=== PATIENT | male | born 1970 | race Caucasian/White ===

== ENCOUNTER 2023-03-02 05:13 | Emergency (ER) | payer BC ==
[2023-03-02 05:27] VITALS: RESP 18; TEMP 97.8
[2023-03-02] MEDS ORDERED: HYDROmorphone 1 MG/ML 1 ML SYRINGE IM STA (05:39)
[2023-03-02] MEDS ORDERED: diazePAM 5 MG TAB PO STA (05:39)
--- NOTE | 2023-03-02 05:40 | ED ---
Back Pain HPI - General Source: family, RN notes reviewed, old records reviewed Limitations: no limitations - History of Present Illness MD Complaint: back pain -: hour(s) Similar Symptoms Previously: Yes Place: home Radiation: none Severity: mild Severity scale (1-10): 3 Quality: sharp Consistency: constant Improves With: none Worsens With: none Context: while lifting Associated Symptoms: denies other symptoms <Kalin Carlson - Last Filed: 03/02/23 06:49> <Kalin Lopez - Last Filed: 03/02/23 08:24> - General Chief Complaint: Back Pain/Injury Stated Complaint: back pain Time Seen by Provider: 03/02/23 05:30 - History of Present Illness Initial Comments: This is a 52-year-old male to the emergency room for evaluation. Patient presents today for evaluation of back pain severe onset of back pain started last night with inability to stand up family history his back inability to move or walk. Patient can gingerly leaned forward and walk. (Kalin Carlson) - Related Data Previous Rx's Medication Instructions Recorded Cyclobenzaprine [Flexeril] 10 mg PO TID #20 tab 03/02/23 Ketorolac [Toradol] 10 mg PO Q6HR #15 tab 03/02/23 Allergies Allergy/AdvReac Type Severity Reaction Status Date / Time No Known Allergies Allergy Verified 03/02/23 05:20 Review of Systems ROS Other: All systems not noted in ROS Statement are negative. <Kalin Carlson - Last Filed: 03/02/23 06:49> ROS Other: All systems not noted in ROS Statement are negative. <Kalin Lopez - Last Filed: 03/02/23 08:24> ROS Statement: Those systems with pertinent positive or pertinent negative responses have been documented in the HPI. Past Medical History Past Medical History: No Reported History History of Any Multi-Drug Resistant Organisms: None Reported Past Surgical History: No Surgical Hx Reported Past Psychological History: No Psychological Hx Reported Smoking Status: Never smoker Past Alcohol Use History: Rare Past Drug Use History: None Reported <Kalin Carlson - Last Filed: 03/02/23 06:49> General Exam Limitations: no limitations General appearance: alert, in no apparent distress Head exam: Present: atraumatic, normocephalic, normal inspection Eye exam: Present: normal appearance, PERRL, EOMI. Absent: scleral icterus, conjunctival injection, periorbital swelling ENT exam: Present: normal exam, mucous membranes moist Neck exam: Present: normal inspection. Absent: tenderness, meningismus, lymphadenopathy Respiratory exam: Present: normal lung sounds bilaterally. Absent: respiratory distress, wheezes, rales, rhonchi, stridor Cardiovascular Exam: Present: regular rate, normal rhythm, normal heart sounds. Absent: systolic murmur, diastolic murmur, rubs, gallop, clicks GI/Abdominal exam: Present: soft, normal bowel sounds. Absent: distended, tenderness, guarding, rebound, rigid Extremities exam: Present: normal inspection, full ROM, normal capillary refill. Absent: tenderness, pedal edema, joint swelling, calf tenderness Back exam: Present: normal inspection Neurological exam: Present: alert, oriented X3, CN II-XII intact Psychiatric exam: Present: normal affect, normal mood Skin exam: Present: warm, dry, intact, normal color. Absent: rash <Kalin Carlson - Last Filed: 03/02/23 06:49> Course <Kalin Carlson - Last Filed: 03/02/23 06:49> Vital Signs 03/02/23 03/02/23 05:18 07:51 Temperature 97.8 F Pulse Rate 76 60 Respiratory 18 18 Rate Blood Pressure 123/79 116/86 O2 Sat by Pulse 97 96 Oximetry - Reevaluation(s) Reevaluation #1: 03/02/23 06:53 Medical record is reviewed (Kalin Carlson) Reevaluation #4: 03/02/23 06:53 Was pt. sent in by a medical professional or institution (, PA, PERSONAL FITNESS MANAGER, urgent care, hospital, or [facility]...) When possible be specific @ -no Did you speak to anyone other than the patient for history (EMS, parent, family, police, friend...)? What history was obtained from this source @ -no Did you review nursing and triage notes (agree or disagree)? Why? @ -agree Are old charts reviewed (outside hosp., previous admission, EMS record, old EKG, old radiological studies, urgent care reports/EKG's, [facility] records)? Report findings @ -yes Differential Diagnosis (chest pain, altered mental status, abdominal pain women, abdominal pain men, vaginal bleeding, weakness, fever, dyspnea, syncope, headache, dizziness, GI bleed, back pain, seizure, CVA, palpatations, mental health, musculoskeletal)? @ -prior EKG interpreted by me (3pts min.). @ -yes X-rays interpreted by me (1pt min.). @ -yes CT interpreted by me (1pt min.). @ -no U/S interpreted by me (1pt. min.). @ -no What testing was considered but not performed or refused? (CT, X-rays, U/S, labs)? Why? @ -none What meds were considered but not given or refused? Why? @ -none Did you discuss the management of the patient with other professionals (professionals i.e. , PA, PERSONAL FITNESS MANAGER, lab, RT, psych nurse, social media project manager, escrow clerk, teacher, planned giving officer, shelter case manager)? Give summary @ -no Was smoking cessation discussed for >3mins.? @ -no Was critical care preformed (if so, how long)? @ -no Were there social determinants of health that impacted care today? How? (Homelessness, low income, unemployed, alcoholism, drug addiction, transportation, low edu. Level, literacy, decrease access to med. care, fpc, rehab)? @ -none Was there de-escalation of care discussed even if they declined (Discuss DNR or withdrawal of care, Hospice)? DNR status @ -no What co-morbidities impacted this encounter? (DM, HTN, Smoking, COPD, CAD, Cancer, CVA, ARF, Chemo, Hep., AIDS, mental health diagnosis, sleep apnea, morbid obesity)? @ -none Was patient admitted / discharged? Hospital course, mention meds given and route, prescriptions, significant lab abnormalities, going to OR and other pertinent info. @ - Undiagnosed new problem with uncertain prognosis? @ -no Drug Therapy requiring intensive monitoring for toxicity (Heparin, Nitro, Insulin, Cardizem)? @ -no Were any procedures done? @ -no Diagnosis/symptom? @ - Acute, or Chronic, or Acute on Chronic? @ -Acute Uncomplicated (without systemic symptoms) or Complicated (systemic symptoms)? @ -Complicated Side effects of treatment? @ -no Exacerbation, Progression, or Severe Exacerbation? @ -exacerbation Poses a threat to life or bodily function? How? (Chest pain, [place], [place], pneumonia, PE, COPD, DKA, ARF, appy, cholecystitis, CVA, Diverticulitis, Homicidal, Suicidal, threat to staff... and all critical care pts) @ -yes (Kalin Carlson) Reevaluation #5: 03/02/23 06:53 Differential Back Pain: Strain, zoster, cauda equina syndrome, epidural abscess, vertebral osteomyelitis, discitis, fracture, subluxation, disc herniation, DJD, spinal stenosis, dissection, AAA, pancreatitis, peptic ulcer disease, pyelonephritis, kidney stone, this is not meant to be an all-inclusive list. (Kalin Carlson) Medical Decision Making - Lab Data Result diagrams: 03/02/23 06:27 <Kalin Carlson - Last Filed: 03/02/23 06:49> - Lab Data Result diagrams: 03/02/23 06:27 03/02/23 06:27 <Kalin Lopez - Last Filed: 03/02/23 08:24> - Medical Decision Making CT of the abdomen and pelvis was interpreted by myself shows no acute abnormality. CT lumbar spine showed bilateral foramen stenosis that was minimal and a little bit of spinal stenosis Was patient admitted / discharged? Hospital course, mention meds given and route, prescriptions, significant lab abnormalities, going to OR and other pertinent info. @ -Patient received Dilaudid morphine and Toradol and Valium in the emergency department he was feeling a little bit better Undiagnosed new problem with uncertain prognosis? @ -No Drug Therapy requiring intensive monitoring for toxicity (Heparin, Nitro, In sulin, Cardizem)? @ -No Were any procedures done? @ -No Diagnosis/symptom? @ -Back strain Acute, or Chronic, or Acute on Chronic? @ -Acute Uncomplicated (without systemic symptoms) or Complicated (systemic symptoms)? @ -Complicated Side effects of treatment? @ -No Exacerbation, Progression, or Severe Exacerbation? @ -No Poses a threat to life or bodily function? How? (Chest pain, [place], [place], pneumonia, PE, COPD, DKA, ARF, appy, cholecystitis, CVA, Diverticulitis, Homicidal, Suicidal, threat to staff... and all critical care pts) @ -No (Kalin Lopez) - Lab Data Lab Results 03/02/23 03/02/23 Range/Units 06:27 06:27 WBC 6.1 (3.8-10.6) k/uL RBC 4.73 (4.30-5.90) m/uL Hgb 14.1 (13.0-17.5) gm/dL Hct 41.7 (39.0-53.0) % MCV 88.2 (80.0-100.0) fL MCH 29.8 (25.0-35.0) pg MCHC 33.8 (31.0-37.0) g/dL RDW 12.6 (11.5-15.5) % Plt Count 192 (150-450) k/uL MPV 8.0 Neutrophils % 62 % Lymphocytes % 28 % Monocytes % 6 % Eosinophils % 2 % Basophils % 1 % Neutrophils # 3.8 (1.3-7.7) k/uL Lymphocytes # 1.7 (1.0-4.8) k/uL Monocytes # 0.4 (0-1.0) k/uL Eosinophils # 0.1 (0-0.7) k/uL Basophils # 0.0 (0-0.2) k/uL Sodium 137 (137-145) mmol/L Potassium 3.9 (3.5-5.1) mmol/L Chloride 105 (98-107) mmol/L Carbon Dioxide 22 (22-30) mmol/L Anion Gap 10 mmol/L BUN 24 H (9-20) mg/dL Creatinine 0.95 (0.66-1.25) mg/dL Est GFR (CKD-EPI)AfAm >90 (>60 ml/min/1.73 sqM) Est GFR (CKD-EPI)NonAf >90 (>60 ml/min/1.73 sqM) Glucose 107 H (74-99) mg/dL Calcium 9.3 (8.4-10.2) mg/dL Total Bilirubin 0.7 (0.2-1.3) mg/dL AST 34 (17-59) U/L ALT 33 (4-49) U/L Alkaline Phosphatase 59 (38-126) U/L C-Reactive Protein <0.5 (<1.0) mg/dL Total Protein 6.8 (6.3-8.2) g/dL Albumin 4.1 (3.5-5.0) g/dL Disposition <Kalin Carlson - Last Filed: 03/02/23 06:49> Is patient prescribed a controlled substance at d/c from ED?: No Time of Disposition: 08:22 <Kalin Lopez - Last Filed: 03/02/23 08:24> Clinical Impression: Strain of lumbar region Disposition: HOME SELF-CARE Instructions (If sedation given, give patient instructions): Low Back Strain (ED) Prescriptions: Cyclobenzaprine [Flexeril] 10 mg PO TID #20 tab Ketorolac [Toradol] 10 mg PO Q6HR #15 tab Referrals: Gustabo Gonzalez Jr, DO [Doctor of Osteopathic Medicine] - 1-2 days
[2023-03-02] MEDS ORDERED: MORPHINE SULFATE 4 MG/ML SYRINGE IVP STA (06:15)
[2023-03-02] MEDS ORDERED: KETOROLAC 15 MG/ML 1 ML VIAL IVP STA (06:15)
[2023-03-02] MEDS ORDERED: SODIUM CHLORIDE 0.9% 500 ML 500 ML IV ONE (06:15)
[2023-03-02 06:41] LABS: Basophils % (A) 1 %; Eosinophils # (A) 0.1 k/uL (0-0.7); Eosinophils % (A) 2 %; HCT 41.7 % (39.0-53.0); HGB 14.1 gm/dL (13.0-17.5); Lymphocytes # (A) 1.7 k/uL (1.0-4.8); Lymphocytes % (A) 28 %; MCH 29.8 pg (25.0-35.0); MCHC 33.8 g/dL (31.0-37.0); MCV 88.2 fL (80.0-100.0); Monocytes # (A) 0.4 k/uL (0-1.0); Monocytes % (A) 6 %; Neutrophils # (A) 3.8 k/uL (1.3-7.7); Neutrophils % (A) 62 %; Platelet Count 192 k/uL (150-450); RBC 4.73 m/uL (4.30-5.90); RDW 12.6 % (11.5-15.5); WBC 6.1 k/uL (3.8-10.6)
[2023-03-02 06:54] LABS: ALT 33 U/L (4-49); AST 34 U/L (17-59); African American GFR (CKD) >90 (>60 ml/min/1.73 sqM); Albumin 4.1 g/dL (3.5-5.0); Alkaline Phosphatase 59 U/L (38-126); Anion Gap 10 mmol/L; Blood Urea Nitrogen 24 mg/dL (9-20); C Reactive Protein <0.5 mg/dL (<1.0); Calcium 9.3 mg/dL (8.4-10.2); Carbon Dioxide 22 mmol/L (22-30); Chloride 105 mmol/L (98-107); Glucose 107 mg/dL (74-99); Non-African American GFR(CKD) >90 (>60 ml/min/1.73 sqM); Potassium 3.9 mmol/L (3.5-5.1); Sodium 137 mmol/L (137-145); Total Bilirubin 0.7 mg/dL (0.2-1.3); Total Protein 6.8 g/dL (6.3-8.2)
--- NOTE | 2023-03-02 07:46 | CT ---
EXAMINATION TYPE: CT abdomen pelvis wo con CT DLP: 377.7 mGycm, Automated exposure control for dose reduction was used. DATE OF EXAM: 03/02/2023 7:08 AM COMPARISON: None. CLINICAL INDICATION:Male, 52 years old with history of pain; right sided back pain TECHNIQUE: Axial CT of the abdomen and pelvis. Sagittal and coronal reformats were created on a [id number] workstation. Contrast used: mL of , (none if empty) Oral contrast used: without Oral Contrast (none if empty) FINDINGS: Exam is limited by lack of contrast. LOWER CHEST: Unremarkable ABDOMEN LIVER: Unremarkable GALLBLADDER AND BILE DUCTS: Unremarkable. PANCREAS: Unremarkable. SPLEEN: Unremarkable. ADRENAL GLANDS: Unremarkable. KIDNEYS AND URETERS: No evidence of hydronephrosis or discrete renal calculus. The ureters are unrema rkable. Pelvic phleboliths. PELVIS BLADDER: Unremarkable REPRODUCTIVE: Coarse calcifications of the prostate gland are identified. ABDOMEN & PELVIS STOMACH AND BOWEL: Appendix is not identified with certainty, however there is no inflammatory proces s seen in the RLQ. No evidence of bowel obstruction. PERITONEUM/RETROPERITONEUM: No evidence of pneumoperitoneum or free fluid. VASCULATURE: No evidence of aortic aneurysm. MUSCULOSKELETAL: No acute osseous abnormality is seen. Mild degenerative changes of the hips with lik armani os acetabulum on the right. Please refer to separate spine CT report for further description of f indings. LYMPH NODES: No gross evidence for lymphadenopathy. SOFT TISSUE/ABDOMINAL WALL: Small fat-containing both region hernia. Subcutaneous radiodensity anteri ann-marie upper right thigh, suggestive of foreign body, likely remote. Probable atherosclerotic calcifica tions noted in the left inguinal region. Small calcification left gluteal musculature. IMPRESSION: No evidence of urinary tract calculi or hydronephrosis.
--- NOTE | 2023-03-02 07:54 | CT ---
EXAMINATION TYPE: CT lumbar spine wo con CT DLP: 200 mGycm, Automated exposure control for dose reduction was used. DATE OF EXAM: 03/02/2023 7:08 AM COMPARISON: None. CLINICAL INDICATION:Male, 52 years old with history of pain; PHH, right sided back pain TECHNIQUE: Multiple axial images were obtained from the midportion of T11 through the sacroiliac jorge nts. Soft tissue and bone windows in coronal and sagittal planes were obtained and reviewed. 3-D ref ormats of the bones were created on a separate workstation and submitted for review. Contrast used: mL of , none if blank. Oral contrast used: none. FINDINGS: Alignment: Lowest rib-bearing vertebra assigned T12, there appear to be 5 nonrib-bearing lumbar-type vertebral bodies, plus a transitional type lumbosacral segment. Alignment appears within normal limit s. Bone: No evidence of fracture or lytic/blastic lesion identified. Mild/moderate multilevel degenerati ve disc disease and facet arthrosis throughout, greatest at transitional-S1. Discs: T12-L1: No significant spinal canal stenosis is seen. Mild bilateral neuroforaminal stenosis. L1-L2: No significant spinal canal stenosis is seen. Mild bilateral neuroforaminal stenosis. L2-L3: No significant spinal canal stenosis is seen. Mild bilateral neuroforaminal stenosis. L3-L4: No significant spinal canal stenosis is seen. Mild bilateral neuroforaminal stenosis. L4-L5: Mild spinal canal stenosis. Mild/moderate bilateral neural foraminal stenosis. L5-L6: Mild spinal canal stenosis. Mild/moderate bilateral neural foraminal stenosis. L6-S1: Mild spinal canal stenosis. Mild/moderate bilateral neural foraminal stenosis. There may be no ndisplaced mostly sclerotic pars defects at L6. Other: Mild degenerative changes of the SI joints with partial osseous bridging left greater than rig ht. Please refer to separate CT body report for further description of findings. IMPRESSION: No evidence of fracture or traumatic malalignment of the lumbar spine. Mild/moderate spondylosis as above.
[2023-03-02] MEDS ORDERED: ACET/COD 300 MG/30 MG STARTER PACK 6 TAB BTL PO STA (08:24)
[2023-03-02 09:03] VITALS: BP 122/95; PULSE 64
== END 2023-03-02 09:04 | disposition home or self-care (01) ==
LOC: EC 05:13
DX: S39.012A Strain of muscle, fascia and tendon of lower back, initial encounter (principal); X50.0XXA Overexertion from strenuous movement or load, initial encounter; Y92.009 Unspecified place in unspecified non-institutional (private) residence as the place of occurrence of the external cause
CPT/HCPCS: 99284; 96374; 96375 ×2; 96361; 96372; 36415; 80053; 85025; 86140; 72131; 74176; J2270; J3360; J1170; J1885

== ENCOUNTER 2023-03-02 20:40 | Emergency (ER) | payer BC ==
[2023-03-02 20:53] VITALS: RESP 18
[2023-03-02] MEDS ORDERED: LIDOCAINE 5% PATCH TOPICAL STA (21:24)
[2023-03-02] MEDS ORDERED: SODIUM CHLORIDE 0.9% 1,000 ML IV STA (21:24)
[2023-03-02] MEDS ORDERED: methylPREDNISolone SOD SUCCI 125 MG/2 ML VIAL IV STA (21:24)
[2023-03-02] MEDS ORDERED: HYDROmorphone 1 MG/ML 1 ML SYRINGE IVP STA (21:24)
[2023-03-02] MEDS ORDERED: KETOROLAC 15 MG/ML 1 ML VIAL IVP STA (21:24)
--- NOTE | 2023-03-02 23:15 | ED ---
General Adult HPI - General Chief complaint: Back Pain/Injury Stated complaint: Back pain Time Seen by Provider: 03/02/23 21:15 Source: patient, RN notes reviewed, old records reviewed Mode of arrival: wheelchair - History of Present Illness Initial comments: Patient is a 52-year-old male with no significant past medical history presents emergency Department complaining of severe back pain. Was seen last night for identical complaints and received CT imaging and labs which were unremarkable. Patient states the pain is located in the right lower back above his right buttock. Does not radiate very much medication and will radiate towards his anterior right knee. Denies any saddle anesthesias. Denies any lower extremity paralysis. Denies any urinary or bowel incontinence or retention. Denies abdominal pain, nausea, vomiting, diarrhea. Denies chest pain or shortness of breath. His no other acute complaints. Patient is a ase master mechanic. Does have a history of straining his back but states this seems less severe. Did receive IV analgesia medications earlier with improvement but presents as pain came back and is not controlled with all medications that he was discharged home. Denies any trauma. - Related Data Previous Rx's Medication Instructions Recorded Cyclobenzaprine [Flexeril] 10 mg PO TID #20 tab 03/02/23 Ketorolac [Toradol] 10 mg PO Q6HR #15 tab 03/02/23 Lidocaine 5% Patch [Lidoderm 5% 1 patch TOPICAL DAILY PRN 14 Days 03/02/23 Patch] #14 patch Allergies Allergy/AdvReac Type Severity Reaction Status Date / Time No Known Allergies Allergy Verified 03/02/23 05:20 Review of Systems ROS Statement: Those systems with pertinent positive or pertinent negative responses have been documented in the HPI. Review of Systems: CONST: Denies fever EYES: Denies blurry vision ENT: Denies nasal congestion C/V: Denies Chest pain RESP: Denies shortness of breath GI: Denies abdominal pain : Denies dysuria SKIN: Denies rash. MSK: Endorses low back pain. NEURO: Denies headache ROS Other: All systems not noted in ROS Statement are negative. Past Medical History Past Medical History: No Reported History History of Any Multi-Drug Resistant Organisms: None Reported Past Surgical History: No Surgical Hx Reported Past Psychological History: No Psychological Hx Reported Smoking Status: Never smoker Past Alcohol Use History: Rare Past Drug Use History: None Reported General Exam - General Exam Comments Initial Comments: General: Appears in no acute distress. HEAD: Normal with no signs of head trauma. EYES: PERRLA, EOMI, conjunctiva normal, no discharge. ENT: Hearing grossly intact, normal oropharynx. RESPIRATORY: Clear breath sounds bilaterally. No wheezes, rales, or rhonchi. C/V: Regular rate and rhythm. S1 and S2 auscultated, no edema, peripheral pulses 2+ and intact throughout ABD: Abd is soft, nontender, nondistended EXT: Normal range of motion, no obvious deformity. No midline cervical, thoracic and lumbar spine tenderness palpation. Patient does have right paraspinal muscle tenderness palpation just above the right buttock. No obvious deformities palpated. SKIN: No rashes or lesions observed on exposed skin. NEURO: Alert and oriented 4. No focal sensory or strength deficits. Course Vital Signs 03/02/23 20:43 Temperature 97.9 F Pulse Rate 76 Respiratory 18 Rate Blood Pressure 124/78 O2 Sat by Pulse 98 Oximetry Medical Decision Making - Medical Decision Making Was pt. sent in by a medical professional or institution (, PA, SEGMENT ASSEMBLER, urgent care, hospital, or fpc...) When possible be specific @ -No Did you speak to anyone other than the patient for history (EMS, parent, family, police, friend...)? What history was obtained from this source @ -No Did you review nursing and triage notes (agree or disagree)? Why? @ -I reviewed and agree with nursing and triage notes Were old charts reviewed (outside hosp., previous admission, EMS record, old EKG, old radiological studies, urgent care reports/EKG's, fpc records)? Report findings @ -Old charts reviewed. Differential Diagnosis (chest pain, altered mental status, abdominal pain women, abdominal pain men, vaginal bleeding, weakness, fever, dyspnea, syncope, headache, dizziness, GI bleed, back pain, seizure, CVA, palpatations, mental health, musculoskeletal)? @ -Differential Back Pain: Strain, zoster, cauda equina syndrome, epidural abscess, vertebral osteomyelitis, discitis, fracture, subluxation, disc herniation, DJD, spinal stenosis, dissection, AAA, pancreatitis, peptic ulcer disease, pyelonephritis, kidney stone, this is not meant to be an all-inclusive list. EKG interpreted by me (3pts min.). @ -None done X-rays interpreted by me (1pt min.). @ -None done CT interpreted by me (1pt min.). @ -None done U/S interpreted by me (1pt. min.). @ -None done What testing was considered but not performed or refused? (CT, X-rays, U/S, labs)? Why? @ -Considered imaging and labs however symptoms are unchanged from earlier today when patient was last evaluated. What meds were considered but not given or refused? Why? @ -None Did you discuss the management of the patient with other professionals (professionals i.e. , PA, SEGMENT ASSEMBLER, lab, RT, psych nurse, social insurance adviser, marketing campaign analyst, teacher, protocol officer, community case manager)? Give summary @ -No Was smoking cessation discussed for >3mins.? @ -No Was critical care preformed (if so, how long)? @ -No Were there social determinants of health that impacted care today? How? (Homelessness, low income, unemployed, alcoholism, drug addiction, transportation, low edu. Level, literacy, decrease access to med. care, nursing home, rehab)? @ -No Was there de-escalation of care discussed even if they declined (Discuss DNR or withdrawal of care, Hospice)? DNR status @ -No What co-morbidities impacted this encounter? (DM, HTN, Smoking, COPD, CAD, Cancer, CVA, ARF, Chemo, Hep., AIDS, mental health diagnosis, sleep apnea, morbid obesity)? @ -None Was patient admitted / discharged? Hospital course, mention meds given and route, prescriptions, significant lab abnormalities, going to OR and other pertinent info. @ -Based on the patient's presentation and physical exam, I'm concerned for what sounds like a severe muscle strain or musculoskeletal back pain. Imaging earlier was obtained as well as labs. Symptoms have been unchanged since then. Patient presents for some pain relief. Vital signs within acceptable limits. No concern for cauda equina syndrome at this time. The patient's labs from earlier were within acceptable limits. Urinalysis was not obtained and we will obtain that. Patient's CT imaging revealed no obvious acute process. Patient does have some spondylosis with neural foraminal stenosis. I discussed the results from earlier at the patient. He agrees we do not need further imaging that they did inquire about an MRI which I informed him cannot be done out of the ER is patient has no signs or symptoms of cauda equina at this time. Expressed understanding. We will place an IV, administered IV fluids as well as analgesic medications with Dilaudid, Toradol, IV Solu-Medrol as well as lidocaine patch. He was in agreement this plan. On reevaluation, patient's back pain is controlled. He is resting comfortably and would like to go home. Urinalysis was just sent. I will notify him of results if it is positive. He was in agreement this plan. Strict return precautions discussed including signs of cauda equina syndrome. I will provide the patient with a prescription for lidocaine patch. I instructed the patient to follow up with their PCP in the next 1-3 days. I provided contact information for follow up with orthopedic spine. I explained that the patient should return to the emergency department if they experience any worsening symptoms. Strict return precautions were discussed with the patient. The patient expressed understanding of these instructions. I answered all questions that the patient had. The patient was discharged home in fair condition with their prescriptions and follow up information. Undiagnosed new problem with uncertain prognosis? @ -No Drug Therapy requiring intensive monitoring for toxicity (Heparin, Nitro, Insulin, Cardizem)? @ -No Were any procedures done? @ -No Diagnosis/symptom? @ -Acute low back pain, suspect muscle strain Acute, or Chronic, or Acute on Chronic? @ -Acute on chronic Uncomplicated (without systemic symptoms) or Complicated (systemic symptoms)? @ -Uncomplicated Side effects of treatment? @ -none Exacerbation, Progression, or Severe Exacerbation] @ -no Poses a threat to life or bodily function? @ -no Disposition Clinical Impression: Back pain Disposition: HOME SELF-CARE Condition: Good Instructions (If sedation given, give patient instructions): Acute Low Back Pain (ED) Prescriptions: Lidocaine 5% Patch [Lidoderm 5% Patch] 1 patch TOPICAL DAILY PRN 14 Days #14 patch PRN Reason: Pain Is patient prescribed a controlled substance at d/c from ED?: No Referrals: Zoe Escalona MD [Primary Care Provider] - 1-2 days Philip Reid DO [Doctor of Osteopathic Medicine] - 1-2 days Time of Disposition: 23:42
[2023-03-03 00:15] VITALS: BP 109/75; PULSE 61; TEMP 98.5
[2023-03-03 00:27] LABS: Appearance,Urine Clear (Clear); Bilirubin,Urine Negative (Negative); Blood,Urine Negative (Negative); Color,Urine Light Yellow; Glucose,Urine (UA) Negative (Negative); Ketones,Urine Negative (Negative); Leukocyte Esterase,Urine Negative (Negative); Nitrite,Urine Negative (Negative); Protein,Urine Negative (Negative); Specific Gravity,Urine 1.018 (1.001-1.035); Urobilinogen,Urine <2.0 mg/dL (<2.0)
== END 2023-03-02 23:59 | disposition home or self-care (01) ==
LOC: EC 20:40
DX: M54.50 Low back pain, unspecified (principal)
CPT/HCPCS: 99284; 81003; 96374; 96375 ×2; J2930; J1170; J1885

== ENCOUNTER → 2023-03-13 | Outpatient (CLI) | payer BC ==
--- NOTE | 2023-03-13 21:11 | MR ---
EXAMINATION TYPE: MR lumbar spine wo con DATE OF EXAM: 03/13/2023 8:47 PM CLINICAL INDICATION:Male, 52 years old with history of M54.50; PHH, Low back pain into the right side COMPARISON: None TECHNIQUE: Multi planar, multi sequence imaging was performed utilizing: T1-weighted, T2-weighted, a nd turbo inversion recovery imaging of the lumbar spine. IV Contrast: (None if empty) FINDINGS: Alignment: The lumbar vertebral bodies have preserved heights and alignment. Transitional vertebrae with sacralization of S1. Cord: The conus medullaris and the distal spinal cord appear unremarkable with regards to their signa l intensity and morphology. Bones/Discs: Mild degeneration changes throughout the spine with osteophyte formation and facet joint arthropathy. Intervertebral disc signal is maintained. T12-L1: Disc bulge and facet joint arthropathy result in mild spinal canal and mild bilateral neural foraminal stenosis. L1-L2: Disc bulge and facet joint arthropathy result in mild spinal canal and mild bilateral neural f oraminal stenosis. L2-L3: Disc bulge and facet joint arthropathy result in mild spinal canal and moderate bilateral neur al foraminal stenosis. L3-L4: Disc bulge and facet joint arthropathy result in mild spinal canal and moderate bilateral neur al foraminal stenosis. L4-L5: Disc bulge and facet joint arthropathy result in mild spinal canal and moderate to severe bila teral neural foraminal stenosis. L5-S1: The disc is rounded posterior morphology without significant spinal canal stenosis. Facet join t arthropathy with mild bilateral neural foraminal stenosis. No significant spinal canal or neural foraminal stenosis in the remainder of the visualized levels. Other findings: None. IMPRESSION: 1. No definitive evidence of disc herniation or significant spinal canal stenosis. 2. Multilevel disc degeneration with associated osteoarthritic changes. Findings worse at L2-L3 [place] [facility] transitional vertebrae S1-S2 with moderate and moderate to severe neural foraminal stenosis 3. Transitional vertebrae present with lumbarization of S1.
== END | disposition home or self-care (01) ==
LOC: RADMRIMAIN 20:15
PROVIDERS: ATTEND Orthopaedic Surgery
DX: M47.26 Other spondylosis with radiculopathy, lumbar region (principal); M51.16 Intervertebral disc disorders with radiculopathy, lumbar region; M99.73 Connective tissue and disc stenosis of intervertebral foramina of lumbar region
CPT/HCPCS: 72148